=== PATIENT | female | born 1970 | race Caucasian/White ===

== ENCOUNTER 2018-08-01 20:17 | Emergency (ER) | payer OTHER, SELFPAY ==
[~2018-08-01 20:17] MED LIST: ISOVUE-370 76%-LOCM 1 ML ONE
[2018-08-01 21:11] LABS: #Basophils 0.1 thou/uL (0.0-0.2); #Eosinphils 0.3 thou/uL (0.0-0.7); #Monocytes 0.8 thou/uL (0.11-0.59); #Neutrophils 5.8 thou/uL (1.40-6.50); %Eosinophils 2.8 % (0.0-10.0); %Lymphocytes 41.7 % (21.0-51.0); %Monocytes 6.3 % (0.0-10.0); %Neutrophils 48.3 % (42.0-75.0); Hemoglobin 14.6 g/dL (12.0-16.0); Mean Corpuscular HGB CONC 34.7 g/dL (32.0-36.0); Mean Corpuscular Hemoglobin 32.4 pg (27.0-31.0); Mean Corpuscular Volume 93.1 fL (78.0-98.0); Mean Platelet Volume 7.4 fL (7.4-10.4); Platelet Count 330 thou/uL (130-400); RBC Distribution Width 11.7 % (11.5-14.5); Red Blood Cell (RBC) Count 4.53 mill/uL (4.20-5.40)
[2018-08-01 21:18] LABS: BHCG - Serum Negative (NEGATIVE); Pregs Control Background? CLEAR/WHITE (CLR/WHITE); Pregs Control Bar Appear? YES (CONTROL BAR)
[2018-08-01 21:31] LABS: ALT (SGPT) 18 U/L (8-55); AST (SGOT) 16 U/L (5-34); Albumin 4.1 g/dL (3.5-5.0); Alkaline Phosphatase 96 U/L (40-150); Anion Gap 16 mmol/L (10-20); BUN (Urea Nitrogen) 8 mg/dL (7.0-18.7); Bilirubin, Total 0.2 mg/dL (0.2-1.2); Calc. Creatinine Clearance 0 mL/min (70-130); Calcium 9.5 mg/dL (7.8-10.44); Carbon Dioxide 22 mmol/L (22-29); Chloride 103 mmol/L (98-107); Estimated GFR-MDRD 78; Globulin 3.1 g/dL (2.4-3.5); Glucose 142 mg/dL (70-105); Lipase 4 U/L (8-78); Potassium 3.8 mmol/L (3.5-5.1); Protein, Total 7.2 g/dL (6.0-8.3); Sodium 137 mmol/L (136-145)
[2018-08-02] MEDS ORDERED: Morphine 4 MG/ML VIAL ONE ×2 (00:05→01:45)
[2018-08-02] MEDS ORDERED: methylPREDNISolone Sod Succ/PF 125 MG/2 ML VIAL ONE (00:06)
[2018-08-02] MEDS ORDERED: diphenhydrAMINE 50 MG/ML VIAL ONE (00:06)
[2018-08-02] MEDS ORDERED: Ondansetron PF 4 MG/2 ML Vial ONE (00:06)
[2018-08-02 00:46] LABS: Clarity Clear (Clear); Glucose, Urine (Dipstick) Negative (Negative); Leukocyte Negative (Negative); Nitrite Negative (Negative); Protein, Urine (Dipstick) Negative (Neg-Trace); Urobilinogen 0.2 mg/dL (0.2-1.0)
[2018-08-02 00:47] LABS: Bilirubin Negative (Negative); Blood, Urine Negative (Negative)
--- NOTE | 2018-08-02 07:18 | CT ---
PRELIMINARY REPORT/[facility]/EMERGENCY AFTER HOURS PROCEDURE: EXAM: CT Abdomen and Pelvis With Contrast EXAM DATE/TIME: 08/02/2018 12:26 AM CLINICAL HISTORY: 48 years old, female; Abdominal pain; Prior surgery; Patient HX: [id number] presents to ED C/O rlq pain and nausea onset x3 days [place]. PT reports that pain radiates to her groin and down the front of her R jostin h. Psxhx of radical hysterectomy for CA in apr 2018 and cholecystectomy x5 yrs [place]. She states that s he has had numbness in this area since apr w/ intermittent sharp pains, and reports that now the issu es are constant and worse. Pmhx of spina bifida. PT denies vomiting, dysuria, or vaginal discharge. D enies any chronic medical conditions. TECHNIQUE: Imaging protocol: Axial computed tomography images of the abdomen and pelvis with intravenous contras t. Coronal reformatted images were created and reviewed. COMPARISON: No relevant prior studies available. FINDINGS: Lungs: The lung bases are clear. ABDOMEN: Liver: There is fatty infiltration of the liver. Gallbladder and bile ducts: Prior cholecystectomy, no significant biliary tree dilation. Pancreas: Unremarkable. Spleen: Unremarkable. Adrenals: There is a 19 mm nodule in the right adrenal gland. Statistically, this is most likely a be nign adenoma. However, it measures slightly greater than water attenuation on this postcontrast scan. Therefore, a follow-up noncontrast CT, or MRI of the adrenal glands will be useful in the future for further followup, or evaluation/characterization. Left adrenal gland appears essentially unremarkable. Kidneys and ureters: Small right intrarenal calculus. No hydronephrosis of either kidney. No visible ureteral calculus. No perinephric fluid. Stomach and bowel: There are no CT findings to strongly suggest diverticulitis. Appendix: The appendix is visualized and appears normal. PELVIS: Bladder: Unremarkable as visualized. Reproductive: Prior hysterectomy. No definite ovarian/adnexal cyst or mass by CT. ABDOMEN and PELVIS: Intraperitoneal space: No free air, ascites, or significant bowel distention. Bones/joints: No significant acute finding. Soft tissues: Small supraumbilical region hernia, containing only fat. Vasculature: No evidence for abdominal aortic aneurysm. Lymph nodes: No retroperitoneal adenopathy. IMPRESSION: 1. Normal appendix. 2. Small right intrarenal calculus. No hydronephrosis of either kidney. No visible ureteral calculus. 3. No free air or significant bowel distention. 4. Small right adrenal nodule, see above. 5. Other findings discussed above. Thank you for allowing us to participate in the care of your patient. Dictated and Authenticated by: Derik Pereira MD 08/02/2018 1:52 AM Central Time ([place] & [place]) FINAL REPORT EMERGENCY AFTER HOURS CT ABDOMEN AND PELVIS: I agree with the preliminary report provided by [facility]. POS: [facility]
== END 2018-08-02 02:21 | disposition home or self-care (01) ==
LOC: ERS 20:17
DX: R10.31 Right lower quadrant pain (principal); F17.210 Nicotine dependence, cigarettes, uncomplicated; I10 Essential (primary) hypertension; Z79.899 Other long term (current) drug therapy
CPT/HCPCS: 36415; 74177; 80053; 81003; 83690; 84703; 85025; 96374; 96375; 96376; J1200; J2270; J2405; J2930; Q9966